=== PATIENT | female | born 1985 | race Caucasian/White ===

== ENCOUNTER 2019-02-22 08:40 | Inpatient (IN) | payer SELFPAY ==
[2019-02-22 09:28] LABS: #Lymphocytes 1.2 thou/uL (1.20-3.40); #Monocytes 0.6 thou/uL (0.11-0.59); #Neutrophils 6.3 thou/uL (1.40-6.50); %Basophils 0.3 % (0.0-1.0); %Eosinophils 0.5 % (0.0-10.0); %Lymphocytes 14.4 % (21.0-51.0); %Monocytes 7.1 % (0.0-10.0); %Neutrophils 77.7 % (42.0-75.0); Hemoglobin 14.4 g/dL (12.0-16.0); Mean Corpuscular HGB CONC 34.4 g/dL (32.0-36.0); Mean Corpuscular Hemoglobin 30.3 pg (27.0-31.0); Mean Corpuscular Volume 88.1 fL (78.0-98.0); Mean Platelet Volume 7.6 fL (7.4-10.4); Platelet Count 375 thou/uL (130-400); RBC Distribution Width 11.9 % (11.5-14.5); Red Blood Cell (RBC) Count 4.75 mill/uL (4.20-5.40); White Blood Cell (WBC) Count 8.1 thou/uL (4.8-10.8)
[2019-02-22 09:45] LABS: ALT (SGPT) 1028 U/L (8-55); AST (SGOT) 1003 U/L (5-34); Acetaminophen Less than 6.0 mcg/mL (10.0-30.0); Albumin 4.6 g/dL (3.5-5.0); Alcohol Less than 10 mg/dL (Less than 10); Alkaline Phosphatase 82 U/L (40-150); Anion Gap 14 mmol/L (10-20); BUN (Urea Nitrogen) 8 mg/dL (7.0-18.7); Bilirubin, Total 1.4 mg/dL (0.2-1.2); Calc. Creatinine Clearance 0 mL/min (70-130); Calcium 9.9 mg/dL (7.8-10.44); Carbon Dioxide 21 mmol/L (22-29); Chloride 103 mmol/L (98-107); Estimated GFR-MDRD 80; Globulin 3.6 g/dL (2.4-3.5); Glucose 110 mg/dL (70-105); Potassium 3.4 mmol/L (3.5-5.1); Protein, Total 8.2 g/dL (6.0-8.3); Salicylate Less than 8.0 mg/dL (15.0-30.0); Sodium 135 mmol/L (136-145)
[2019-02-22 10:22] LABS: Bilirubin Negative (Negative); Blood, Urine Negative (Negative); Clarity Clear (Clear); Glucose, Urine (Dipstick) Normal (Negative); Leukocyte Negative Leu/uL (Negative); Nitrite Negative (Negative); Protein, Urine (Dipstick) Negative (Neg-Trace); Urobilinogen Normal mg/dL (Less than 2)
[2019-02-22 10:25] LABS: Pregnancy Test - Urine (BHCG) Negative (Negative); Pregu Control Background? CLEAR/WHITE (CLR/WHITE); Pregu Control Bar Appear? YES (CONTROL BAR); Specific Gravity 1.007 (1.002-1.036)
[2019-02-22 10:30] LABS: Amphetamine Not Detected (NotDetected); Barbiturates Screen Not Detected (NotDetected); Benzodiazepine Screen Not Detected (NotDetected); Cocaine Metabolite Screen Not Detected (NotDetected); Medtox Control Line Valid? VALID (VALID); Medtox Reader # READER 4; Methadone Not Detected (NotDetected); Methamphetamine Not Detected (NotDetected); Opiate Screen Not Detected (NotDetected); Oxycodone Screen Not Detected (NotDetected); Phencyclidine (PCP) Not Detected (NotDetected); THC/Cannabinoid Screen Not Detected (NotDetected); Tricyclic Screen Not Detected (NotDetected)
[2019-02-22] MEDS ORDERED: Morphine 4 MG/ML VIAL ONE (11:03)
[2019-02-22] MEDS ORDERED: Ondansetron PF 4 MG/2 ML Vial ONE (11:04)
[2019-02-22 11:19] LABS: INR-International Normal Ratio 1.4; Prothrombin Time 16.7 SEC (12.0-14.7)
--- NOTE | 2019-02-22 11:31 | ULT ---
GALLBLADDER ULTRASOUND: Date: 02/22/19 INDICATION: Emergency exam performed for right upper quadrant, abdominal pain. FINDINGS: No focal hepatic lesion or evidence of acute gallbladder pathology. Moderate distention of the gallbl adder is present. The common duct is normal, measuring 3.0 mm, and the gallbladder is within normal l imits. No ascites. IMPRESSION: No acute process of the right upper quadrant is identified, by sonographic evaluation. POS: [facility]
[2019-02-22 12:24] LABS: HBCM Index 0.07 S/CO (0-0.79); Hep A IgM AB Non-Reactive (NonReactive); Hep A IgM S/CO 0.12 S/CO (0-0.79); Hep B Surf Ag Non-Reactive S/CO (NonReactive); Hep C IgG Ab Non-Reactive (NonReactive); Hep C Index 0.14 S/CO (0-0.79); Hepatitis B Core IgM Abs Non-Reactive (NonReactive)
--- NOTE | 2019-02-22 12:41 | PDOC.FM ---
- Subjective Subjective: 33 yo F presents for altered mental status and abdominal pain. Patient reports that she decided to fast for the past 3 days. She started having LLQ abdominal pain that wraps around to her lower back and her lower abdomen, and was concerned that she had a UTI. She also described yellow discharge. Family reports that the patient has been having auditory and visual hallucinations. They say she has slept very little. They report she has had this issue since her early 20s. - Objective Result Diagrams: 02/22/19 09:15 02/22/19 09:15
[2019-02-22] MEDS ORDERED: Ibuprofen 200 MG TAB ONE (13:51)
--- NOTE | 2019-02-22 14:30 | PDOC.FPRHP ---
- History of Present Illness Chief Complaint: abdominal pain History of Present Illness: 33 yo F presents for abdominal pain and "mental help." Patient is a difficult historian. Patient reports that she decided to fast for the past 3 days. She started having LLQ abdominal pain that wraps around to her lower back and her lower abdomen, and was concerned that she had a UTI. She also described yellow discharge. Associated sx include diffuse weakness, substernal chest pain, and "head pressure," vomitingx2 yesterday. Denies hematemesis, hematochezia, hematuria. Does state that she takes tylenol and ibuprofen occasionally. Per report, family states that the patient has been having auditory and visual hallucinations. They say she has slept very little over the past few days. They report she has had this issue since her early 20s., but it has been worsening over the past few years and is now intolerable. They have a difficult time controlling her when she is like this. They brought her today for "Mental help. " Per the patient's brother, her believes that she may have taken her son' s hydrocodone medication. Family feels that she is a threat to her children's wellbeing. ED Course: AST and ALT elevated to 1000 RUQ ultrasound - mod distended gallbladder, no common duct dilation UDS negative Hep panel negative UA and UPT negative - Allergies/Adverse Reactions Allergies Allergy/AdvReac Type Severity Reaction Status Date / Time No Known Allergies Allergy Verified 02/22/19 16:41 - History PMHx: none, no formal psychiatric diagnosis PSHx: tubal ligation FHx: father of heart attack at age 59. No diabetes, no cancer, no HTN. No family history of liver/lung problems. Social: patient denies t/a/d use, family reports remote history of illicit drug use. - Review of Systems General: reports: weight/appetite/sleep changes, fatigue. denies: fever/chills Eyes: denies: eye pain, vision changes ENT: reports: nasal congestion, rhinorrhea Respiratory: reports: cough Cardiovascular: reports: chest pain. denies: palpitation Gastrointestinal: reports: nausea, vomiting, abdominal pain. denies: diarrhea, constipation, GI bleeding Genitourinary: reports: discharge. denies: dysuria Skin: denies: rashes, lesions Musculoskeletal: reports: pain (back pain). denies: tenderness Neurological: reports: weakness. denies: numbness Psychological: reports: depression. denies: anxiety - Vital signs BP: 123/92, Pulse: 91, Resp: 18, Pain: 4, O2 sat: 99 on Room Air, Time: 2018 12:00. - Physical Exam Constitutional: NAD, well developed, other (awake, alert, AO to self and place , not time) HEENT: normocephalic and atraumatic, PERRLA, conjunctiva clear, MMM, oropharynx clear Neck: supple, no LAD Heart: RRR, normal S1/S2 Lungs: CTAB, no wheezing Abdomen: soft, bowel sounds present, no masses/distention, other (TTP LLQ and LUQ, no guarding or rebound) Musculoskeletal: normal structure, normal tone, ROM grossly normal Neurological: no focal deficit Skin: good turgor, capillary refill <2 seconds Heme/Lymphatic: no unusual bruising or bleeding, no petechia Psychiatric: other (Patient acts suspicious of medical team, AO to self and place not time. Repeats questions "What is hepatitis?") FMR H&P: Results - Labs Result Diagrams: 02/22/19 09:15 02/23/19 06:03 Lab results: WBC 8.1 thou/uL (4.8-10.8) 02/22/19 09:15 Hgb 14.4 g/dL (12.0-16.0) 02/22/19 09:15 Hct 41.8 % (36.0-47.0) 02/22/19 09:15 MCV 88.1 fL (78.0-98.0) 02/22/19 09:15 Plt Count 375 thou/uL (130-400) 02/22/19 09:15 Neutrophils % 77.7 % (42.0-75.0) H 02/22/19 09:15 Sodium 135 mmol/L (136-145) L 02/22/19 09:15 Potassium 3.4 mmol/L (3.5-5.1) L 02/22/19 09:15 Chloride 103 mmol/L (98-107) 02/22/19 09:15 Carbon Dioxide 21 mmol/L (22-29) L 02/22/19 09:15 BUN 8 mg/dL (7.0-18.7) 02/22/19 09:15 Creatinine 0.81 mg/dL (0.6-1.1) 02/22/19 09:15 Glucose 110 mg/dL (70-105) H 02/22/19 09:15 Lactic Acid 1.2 mmol/L (0.5-2.2) 02/22/19 12:00 Calcium 9.9 mg/dL (7.8-10.44) 02/22/19 09:15 Total Bilirubin 1.4 mg/dL (0.2-1.2) H 02/22/19 09:15 AST 1003 U/L (5-34) H 02/22/19 09:15 ALT 1028 U/L (8-55) H 02/22/19 09:15 Alkaline Phosphatase 82 U/L (40-150) 02/22/19 09:15 Ammonia 30 umol/L (18-72) 02/22/19 11:25 Serum Total Protein 8.2 g/dL (6.0-8.3) 02/22/19 09:15 Albumin 4.6 g/dL (3.5-5.0) 02/22/19 09:15 Lipase 46 U/L (8-78) 02/22/19 10:59 Urine Ketones Trace mg/dL (Negative) A 02/22/19 09:09 Urine Blood Negative (Negative) 02/22/19 09:09 Urine Nitrite Negative (Negative) 02/22/19 09:09 Ur Leukocyte Esterase Negative Marya/uL (Negative) 02/22/19 09:09 - Radiology Interpretation Other Status: image reviewed by me (RUQ - moderate dilation gallbladder, no CBD distention), report reviewed by ga FMR H&P: A/P - Problem List (1) Acute hepatitis Current Visit: Yes Status: Acute Code(s): B17.9 - ACUTE VIRAL HEPATITIS, UNSPECIFIED (2) Altered mental status Current Visit: Yes Status: Acute Code(s): R41.82 - ALTERED MENTAL STATUS, UNSPECIFIED (3) Hyperbilirubinemia Current Visit: Yes Status: Acute Code(s): E80.6 - OTHER DISORDERS OF BILIRUBIN METABOLISM (4) Atypical chest pain Current Visit: Yes Status: Acute Code(s): R07.89 - OTHER CHEST PAIN - Plan Acute Hepatitis -Unknown cause at this time. AST, ALT elevated to 1000. Bili elevated 2.8. INR within normal limits. UDS negative, RUQ negative, Hepatitis panel negative. Patient denies recent illicit/OTC drug abuse. -Additional labwork to evaluate for possible source of hepatitis including EBV, CMV, AMA, LIAM, serum Fe, Ceruloplasmin, Anti-smooth antibody, RPR, HIV. - Consult GI, Dr. Smyth, appreciate recommendations - Ibuprofen for pain Altered mental status - Pt AOx2. Possibly secondary to underlying psychiatric diagnosis, as family reports she has had this issue since her 20s. - Ammonia normal. - Sitter at bedside, PRN haldol for agitation. Start seroquel. Once medically stable, will consult [facility] ([facility]). Atypical Chest pain -EKG and troponin Hyperbilirubinemia -see Acute Hepatitis GI ppx: protonix DVT ppx: SCDs PCP: CC Dispo: admit to inpatient medical FMR H&P: Upper Level - Plan Date/Time: 02/22/19 [id number] I, [], have evaluated this patient and agree with findings/plan as outlined by epidemiology intern resident. Pertinent changes/additions are listed here. Addendum - Attending - Attending Attestation Date/Time: 02/23/19 [id number] I personally evaluated the patient and discussed the management with Dr. clark on 02/22/19. I agree with the History, Examination, Assessment and Plan documented above with any addition or exceptions noted below. 33 y.o. WF with suspected h/o Mental/Behavioral Health Issues of unclear extent or origin untreated for years of waxing and waning nature, brought in for complaint of abdominal pain and increasingly erratic behavior per family with concerns for manic patterns with A/V hallucinations. Labs show LFT's 5x's normal with normal Coags and Platelets, no stigmata of failure suggesting acute Hepatitis of unknown source. Viral Hepatitis panel is negative. Will widen the search for causative agent. Concern for Acetominophen OD was raised, but no report of ingestion of more than possibly son's Raymond. As pt. is otherwise opiate naive, it is doubtful that she would have consumed enough to reach Acetominophen toxicity and then clear her system to yield a negative UDS without becoming highly sedated, even respiratorily depressed. Will remain vigilant for alternative causes in Ddx. Meanwhile, will manage psychosis with low dose antipsychotics and prn short term meds, attendants at bedside. Will need MHMR evaluation once medically stabilized.
[2019-02-22 16:18] LABS: HIV (1/2) Antibody/Antigen Non-Reactive (NonReactive); HIV 1/2 INDEX 0.09 S/CO (<1.00); Syphilis Antibody Nonreactive (Nonreactive); Syphilis Antibody Index 0.06 S/CO (<1.00 Non-Reactive)
[2019-02-22] MEDS: Ibuprofen 600 MG TAB PO SCH ×3 (16:23→23:10)
[2019-02-22 16:45] VITALS: BMI 25.3
[2019-02-22] MEDS ORDERED: ACETYLCYSTEINE IVPB SCH (19:30)
[2019-02-22] MEDS ORDERED: WATER IVPB SCH (19:30)
[2019-02-22] MEDS ORDERED: DEXTROSE 5% IVPB SCH (19:30)
[2019-02-22] MEDS ORDERED: Acetaminophen 500 MG TAB PO PRN (20:27)
[2019-02-22] MEDS: Haloperidol Lactate 5 MG/ML VIAL SLOW IVP PRN (21:00)
[2019-02-22] MEDS: Melatonin 3 MG TAB PO PRN (21:02)
[2019-02-22] MEDS ORDERED: Haloperidol Lactate 5 MG/ML VIAL SLOW IVP SCH (22:00)
--- NOTE | 2019-02-23 02:29 | CON ---
DATE OF CONSULTATION: 02/22/2019 REASON FOR CONSULTATION: Transaminitis. CONSULTING PROVIDER: Bell Tello MD. HISTORY OF PRESENT ILLNESS: The patient is a 33-year-old female, with no significant past medical history, who presented to the hospital with complaints of left lower quadrant abdominal pain and noted to have significant transaminitis on laboratory evaluation. During the course of the interview with this patient, her thought processes were somewhat slowed with inability to recall events undergone within the last 2 to 3 days. However, she did describe increased suprapubic abdominal pain that appeared approximately 3 days ago that she characterized as a cramping-type sensation, would radiate to the left upper quadrant, was intermittent, and would last for approximately 20 minutes in duration, and reach a severity of 7/10. She could not recall any exacerbating factors for this particular pain, but did note that her pain would be better with walking and taking pain medications. She attributed this to a urinary tract infection in addition to describing a yellowish discharge from her vagina, although she could not further elaborate beyond that. This was associated with increased weakness, substernal chest pain, and vomiting that she exhibited yesterday. She states that her last bowel movement was yesterday and she has had no significant change in her bowel habits over the last 2 to 3 weeks. As an outpatient, she does take Tylenol and ibuprofen occasionally, but she could not recall how much of either these medications she had taken over the last 48 to 72 hours. Near the end of the interview, the patient became agitated with further questioning and refused to answer any additional questions as well as refusing a physical examination, so the remainder of the information was obtained through chart review. Per chart review, the patient has been exhibiting what appears to be manic-type episodes with insomnia, auditory and visual hallucinations that have been present since early 20s, but have been progressively worsening over the last few years. Also, per chart review, the patient's family noted that she had possibly taken her son's hydrocodone to treat her current abdominal pain. REVIEW OF SYSTEMS: 10-category review of systems was attempted, but the patient did not cooperate with any further line of questioning. PAST MEDICAL HISTORY: None. PAST SURGICAL HISTORY: Tubal ligation. FAMILY HISTORY: No mention of any GI malignancies or liver dysfunction. SOCIAL HISTORY: No mention of recent tobacco, alcohol, or illicit drug use, although the family (per chart review) did endorse a history of remote illicit drug use. OUTPATIENT MEDICATIONS: None. ALLERGIES: NO KNOWN DRUG ALLERGIES. PHYSICAL EXAMINATION: VITAL SIGNS: Temperature 97.7, pulse 104, blood pressure 110/77, respiratory rate 20, saturating 99% on room air. Further physical examination could not be performed due to the patient's refusal at this time. LABORATORY DATA: CBC with a white blood cell count of 8.1, hemoglobin 14.4, hematocrit 41.8, platelets 375. Chemistry with a sodium of 135, potassium 3.4, chloride 103, CO2 of 21, BUN 8, creatinine 0.81, glucose 110, AST 1003, ALT 1028, alkaline phosphatase 82, total bilirubin 1.4, albumin 4.6, lipase 46. INR 1.4. Drug of abuse screen was negative for illicit substances. Acute hepatitis panel for hepatitis A, B, or C was negative. HIV was negative, and RPR for syphilis was negative. IMAGING DATA: A right upper quadrant ultrasound was obtained on February 22, 2019, which did not show any focal hepatic lesion or gallbladder pathology. Common bile duct measured approximately 3 mm in diameter and there was no evidence of ascites during this examination. ASSESSMENT AND PLAN: The patient is a 33-year-old female, with no significant past medical history, presenting with complaints of left lower quadrant abdominal pain and significant transaminitis. Suprapubic/left lower quadrant abdominal pain. The patient initially presented with increased suprapubic abdominal pain characterized as a cramping-type sensation that have been occurring for the last 3 days. With the patient's current mental state, it was difficult to ascertain further contributing factors to this particular type of pain nor any significant change in bowel or urinary habits. Given the mention of vaginal discharge, a urinary tract infection sounds more likely, although with the administration of hydrocodone as an outpatient, it could potentially contribute to constipation, which would explain her left lower quadrant abdominal pain and radiation to the left upper quadrant. Differential could include constipation (narcotic induced), diverticular pain/diverticulitis (less likely in a 33-year-old patient), broad ligament strain, radiation of urinary tract infection, endometriosis (less likely), inflammatory bowel disease (less likely), irritable bowel syndrome and/or gastrointestinal neoplasm (much less likely). Recommendations: 1. Pain control per Primary Team. 2. We would place the patient on a bowel regimen while inpatient in light of possible recent hydrocodone abuse with daily MiraLAX as needed for constipation. Transaminitis: The patient is presenting with what appears to be a history of manic-type episodes associated with altered mental status (auditory and visual hallucinations) that may be consistent with bipolar disorder. Given manic-type episodes and inability to recall accurately events over the last 2 to 3 days, ingestion of significant amounts of Tylenol could have occurred. Drug of abuse testing on admission showed negative acetaminophen level; however, given the strong suspicion for acetaminophen ingestion and the presence of any hepatic injury, treatment with N-acetylcysteine is indicated. Further workup for this transaminitis is ongoing with the differential including autoimmune hepatitis, alpha-1 antitrypsin deficiency (although it is usually a more indolent process), Jerad disease, medication/toxin induced, hepatic ischemia (less likely given degree of elevation), or infection (less likely). Recommendations: 1. Agree with obtaining CMV and EBV viral titers for possible transaminitis and a relatively asymptomatic individual. 2. Agree with liver workup to include autoimmune hepatitis with serologies for LIAM, ASMA in addition to possible Jerad disease (all these conditions can flare). 3. We would place the patient on 21-hour protocol for N-acetylcysteine IV given probable recent acetaminophen ingestion and presence of hepatic injury. 4. We would continue to trend LFTs daily in addition to INR for signs of hepatic dysfunction with low threshold to transfer the patient to the ICU if the patient exhibits increased INR or worsening altered mental status during the course of this admission. We will continue to follow. Please call with any questions. Job ID: [id number]
[2019-02-23] MEDS ORDERED: diphenhydrAMINE 50 MG/ML VIAL IVP PRN (03:37)
[2019-02-23] MEDS ORDERED: Ondansetron ODT 4 MG TAB PO PRN (03:37)
[2019-02-23] MEDS ORDERED: Ondansetron PF 4 MG/2 ML Vial IVP PRN (03:37)
[2019-02-23] MEDS ORDERED: diphenhydrAMINE 25 MG CAP PO PRN (03:37)
[2019-02-23] MEDS ORDERED: Acetylcysteine 20% (200mg/mL) 3,500 MG in Dextrose 5% in Water 500 ML IV SCH (03:45)
[2019-02-23] MEDS: Haloperidol Lactate 5 MG/ML VIAL SLOW IVP PRN (03:58)
[2019-02-23] MEDS ORDERED: Ziprasidone 20 MG VIAL IM PRN (06:09)
[2019-02-23] MEDS: Ibuprofen 600 MG TAB PO SCH ×4 (06:16→23:00)
[2019-02-23 06:18] LABS: Prothrombin Time 22.2 SEC (12.0-14.7)
--- NOTE | 2019-02-23 06:27 | PDOC.FM ---
- Subjective Subjective: Patient denies abdominal pain this AM. Overnight, patient was put in restraints because she kept leaving and walking down the hallways. She was given haldol and ativan. - Objective Vital Signs & Weight: Vital Signs (12 hours) Temp Pulse Resp BP Pulse Ox 02/23/19 03:40 98.2 F 81 18 127/86 97 02/23/19 00:00 98.0 F 113 H 22 H 125/80 99 02/22/19 19:46 97.7 F 104 H 20 110/77 99 02/22/19 19:42 99 Weight Weight 69.082 kg I&O: 02/21/19 02/22/19 02/23/19 06:59 06:59 06:59 Intake Total 1490 Balance 1490 Result Diagrams: 02/22/19 09:15 02/23/19 06:03 Phys Exam - Physical Examination Constitutional: NAD HEENT: moist MMs Neck: no nodes, supple Respiratory: no wheezing, clear to auscultation bilateral Cardiovascular: RRR, no significant murmur Gastrointestinal: soft, non-tender, positive bowel sounds Musculoskeletal: no edema, pulses present Neurological: non-focal, moves all 4 limbs Deviation from normal: Patient avoids eye contact, repeats questions. Confused. Poor insight. Skin: normal turgor, cap refill <2 seconds Dx/Plan (1) Acute hepatitis Code(s): B17.9 - ACUTE VIRAL HEPATITIS, UNSPECIFIED Status: Acute (2) Altered mental status Code(s): R41.82 - ALTERED MENTAL STATUS, UNSPECIFIED Status: Acute (3) Hyperbilirubinemia Code(s): E80.6 - OTHER DISORDERS OF BILIRUBIN METABOLISM Status: Acute (4) Atypical chest pain Code(s): R07.89 - OTHER CHEST PAIN Status: Acute (5) Acute liver failure Status: Acute - Plan Plan: Acute Liver Failure -Unknown cause at this time. AST, ALT 1000 -> 3500/6400. Bili elevated 2.8 -> 1.2. INR increased to 2. UDS negative, RUQ negative, Hepatitis panel negative. HIV/RPR neg. Patient denies recent illicit/OTC drug abuse. -Additional labwork to evaluate for possible source of hepatitis pending EBV, CMV, AMA, LIAM, serum Fe, Ceruloplasmin, Anti-smooth antibody. - Consult GI, Dr. Smyth, appreciate recommendations -Added immunology panel, N-Acetylcysteine protocol - Ibuprofen for pain - Recheck INR this afternoon, likely will need to transfer to ICU. Altered mental status - Pt AOx2. Possibly secondary to underlying psychiatric diagnosis, as family reports she has had this issue since her 20s. - Ammonia normal. Recheck this AM - Sitter at bedside, PRN haldol for agitation. Start seroquel. Once medically stable, will consult [facility] ([facility]). Hypokalemia -Replace with oral potassium Atypical Chest pain -EKG - NSR, and troponin neg -Does not complain of pain this AM Hyperbilirubinemia -see Acute Hepatitis GI ppx: protonix DVT ppx: SCDs PCP: CC Dispo: admit to inpatient medical Addendum - Attending - Attending Attestation Date/Time: 02/23/19 2588 I personally evaluated the patient and discussed the management with Dr. Tello. I agree with the History, Examination, Assessment and Plan documented above with any addition or exceptions noted below. Agitated overnight, requriring physical restraint. Antipsychotic initiated at low dose with PRN's, will gradually increase to effective level. Calmer this morning but still poor insight and judgement. Denies SI or OD. Awaiting w/u labs for fulminant hepatitis with failure.
[2019-02-23 06:41] LABS: Albumin 3.9 g/dL (3.5-5.0); Alkaline Phosphatase 70 U/L (40-150); Anion Gap 14 mmol/L (10-20); BUN (Urea Nitrogen) 8 mg/dL (7.0-18.7); Bilirubin, Total 1.2 mg/dL (0.2-1.2); Calc. Creatinine Clearance 116 mL/min (70-130); Carbon Dioxide 20 mmol/L (22-29); Chloride 106 mmol/L (98-107); Estimated GFR-MDRD 89; Glucose 143 mg/dL (70-105); Potassium 3.3 mmol/L (3.5-5.1); Protein, Total 6.9 g/dL (6.0-8.3); Sodium 137 mmol/L (136-145)
[2019-02-23 06:42] LABS: AST (SGOT) Greater than 3500 U/L (5-34)
[2019-02-23 06:53] LABS: ALT (SGPT) 6478 U/L (8-55)
[2019-02-23] MEDS ORDERED: DEXTROSE 5% IV SCH (07:45)
[2019-02-23] MEDS ORDERED: ACETYLCYSTEINE IV SCH (07:45)
[2019-02-23] MEDS ORDERED: WATER IV SCH (07:45)
[2019-02-23] MEDS ORDERED: Potassium Chloride 20 MEQ TAB PO SCH (09:00)
[2019-02-23 13:29] LABS: INR-International Normal Ratio 1.7; Prothrombin Time 20.2 SEC (12.0-14.7)
[2019-02-23 13:46] LABS: Magnesium 2.6 mg/dL (1.6-2.6); Phosphorus 2.2 mg/dL (2.3-4.7)
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
[2019-02-23] MEDS ORDERED: PHOS-NAK 1 PKT PACK PO SCH (16:00)
[2019-02-23 17:04] LABS: ANA Symphony (Qualitative) Negative (Negative); ANA Symphony (Quantitative) 0.2 Ratio (< 0.7 Negative); EliA Vaculitis New Method **** NEW METHOD ****; Mitochondrial Ab Less than 0.5 U/mL (<4 Negative); dsDNA IgG Antibody 1.5 IU/mL (<10 Negative)
[2019-02-23] MEDS ORDERED: Haloperidol Lactate 5 MG/ML VIAL SLOW IVP PRN (17:04)
--- NOTE | 2019-02-23 18:30 | PRG ---
DATE OF SERVICE: 02/23/2019 REASON FOR CONSULTATION: Transaminitis/hepatic dysfunction. SUBJECTIVE: Overnight, the patient continued to display increased agitation with removing of her IV lines, then was subsequently restrained in order to prevent her from doing so. However, per nursing staff, during the course of the day today, she has been much more pleasant and has not attempted to remove any additional IV lines and has been largely cooperative with hospital staff. Currently, she denies any nausea, vomiting, fevers, chills, abdominal pain, hematemesis, melena, hematochezia, diarrhea, or constipation, although she has not had a bowel movement yet during this admission. OBJECTIVE: VITAL SIGNS: Temperature 98, pulse 76, blood pressure 112/76, respiratory rate 20, saturating 99% on room air. GENERAL: The patient is lying in bed, in no acute distress. Alert and oriented x4. CARDIOVASCULAR: Regular rate and rhythm. RESPIRATORY: Clear to auscultation bilaterally. ABDOMEN: Normoactive bowel sounds. Soft, nontender, nondistended. EXTREMITIES: No cyanosis, clubbing, or edema. LABORATORY DATA: INR increased to 2.0. Chemistry with a sodium of 137, potassium 3.3, chloride 106, CO2 of 20, BUN 8, creatinine 0.74. AST greater than 3500, ALT 6478, alkaline phosphatase 70, total bilirubin 1.2. IMAGING DATA: No current GI imaging is available for review. ASSESSMENT AND PLAN: The patient is a 33-year-old female with no significant past medical history, although may have some underlying psychiatric illness, presenting with complaints of left lower quadrant abdominal pain (now resolved) and significant transaminitis. 1. Transaminitis. The patient was initially presenting to the hospital with complaints of suprapubic abdominal pain, that has since resolved during the course of this hospitalization. However, on evaluation of her labs on admission, she was noted to have a significantly elevated AST and ALT concerning for hepatic injury with some mention of increased ingestion of Tylenol in the form of either acetaminophen or coupled with hydrocodone and when coupled with her hepatic injury, she was started on N-acetylcysteine last night, but has not had a chance to really assimilate the medication until starting this morning when she was able to maintain IV lines. Workup for her transaminitis thus far has been negative for acute viral hepatitis, hepatic mass (not seen on ultrasound), autoimmune hepatitis, primary biliary cirrhosis, HIV, and syphilis. Current pending laboratory results for EBV, CMV, anti-smooth muscle, serum plasma, and immunoglobulin profile are pending. RECOMMENDATIONS: 1. Would continue to trend LFTs and INR daily to assess response to treatment and evaluate possible worsening liver function. 2. Would continue to monitor the patient clinically for signs of hepatic encephalopathy, which could be a harbinger of hepatic failure. 3. Would follow up on the drawn labs thus far for acute flares in transaminitis. 4. Would continue the patient on 21-hour protocol with N-acetylcysteine, given possible acetaminophen ingestion and presence of hepatic injury. 5. I would have a low threshold for transferring this patient to the ICU for further management if she begins to exhibit significant elevation in her INR, worsening altered mental status, and significant transaminitis. We will continue to follow. Please call with any questions. Job ID: [id number]
[2019-02-23] MEDS: Melatonin 3 MG TAB PO PRN (22:31)
--- NOTE | 2019-02-23 22:57 | ULT ---
Hepatic ultrasound with duplex evaluation INDICATION: Elevated LFTs with nausea vomiting and diarrhea TECHNIQUE: Grayscale, color Doppler and spectral Doppler images were obtained of the liver, gallbladd er, common bile duct, pancreas, right kidney and spleen. COMPARISON: Right upper quadrant ultrasound dated February 22, 2019 FINDINGS: Liver: No focal hepatic lesion is evident. Hepatic vasculature: Left hepatic vein: Appropriate flow. Middle hepatic vein: Appropriate flow. Right hepatic vein: Appropriate flow. Hepatic artery: Hepatopedal flow. Main portal vein: Hepatopedal flow. Right portal vein: Hepatopedal flow. Left portal vein: Hepatopedal flow. Splenic artery: Appropriate flow. Splenic vein: Hepatopedal flow. Aorta: Appropriate flow. IVC: Appropriate flow. Gallbladder: Normal appearing. Common bile duct: 3 mm. Pancreas: Visualized pancreas appears within normal limits. Right kidney: Visualized right kidney demonstrated no focal renal lesion or hydronephrosis Spleen: The spleen measured 11.4cm in length. IMPRESSION: 1. No focal hepatic lesion. Appropriate hepatopedal flow.
[2019-02-24] MEDS: Ibuprofen 600 MG TAB PO SCH ×2 (06:19→15:28)
[2019-02-24 06:37] LABS: INR-International Normal Ratio 1.5; Prothrombin Time 17.6 SEC (12.0-14.7)
[2019-02-24 06:55] LABS: AST (SGOT) 1563 U/L (5-34); Albumin 3.4 g/dL (3.5-5.0); Alkaline Phosphatase 80 U/L (40-150); Anion Gap 15 mmol/L (10-20); BUN (Urea Nitrogen) 9 mg/dL (7.0-18.7); Bilirubin, Total 0.9 mg/dL (0.2-1.2); Calc. Creatinine Clearance 81 mL/min (70-130); Calcium 9.1 mg/dL (7.8-10.44); Carbon Dioxide 17 mmol/L (22-29); Chloride 109 mmol/L (98-107); Estimated GFR-MDRD 59; Globulin 2.9 g/dL (2.4-3.5); Glucose 90 mg/dL (70-105); Potassium 3.5 mmol/L (3.5-5.1); Protein, Total 6.3 g/dL (6.0-8.3); Sodium 137 mmol/L (136-145)
[2019-02-24 06:56] LABS: Phosphorus 3.7 mg/dL (2.3-4.7)
[2019-02-24 07:08] LABS: ALT (SGPT) 3883 U/L (8-55)
[2019-02-24 07:10] LABS: #Eosinphils 0.3 thou/uL (0.0-0.7); #Lymphocytes 1.5 thou/uL (1.20-3.40); #Monocytes 0.4 thou/uL (0.11-0.59); %Basophils 0.7 % (0.0-1.0); %Monocytes 8.3 % (0.0-10.0); Hemoglobin 12.1 g/dL (12.0-16.0); Mean Corpuscular HGB CONC 32.9 g/dL (32.0-36.0); Mean Corpuscular Volume 88.1 fL (78.0-98.0); Mean Platelet Volume 7.6 fL (7.4-10.4); Platelet Count 270 thou/uL (130-400); RBC Distribution Width 12.1 % (11.5-14.5); Red Blood Cell (RBC) Count 4.18 mill/uL (4.20-5.40); White Blood Cell (WBC) Count 5.3 thou/uL (4.8-10.8)
--- NOTE | 2019-02-24 08:26 | PDOC.FM ---
- Subjective Subjective: No complaints this AM. Pt reports she is eating, drinking, voiding, stooling well. No abdominal pain. - Objective Vital Signs & Weight: Vital Signs (12 hours) Temp Pulse Resp BP Pulse Ox 02/24/19 07:40 97.6 F 63 14 111/75 99 02/23/19 20:40 99 Weight Weight 69.082 kg I&O: 02/23/19 02/24/19 02/25/19 06:59 06:59 06:59 Intake Total 1490 1330 Balance 1490 1330 Result Diagrams: 02/24/19 07:01 02/24/19 06:09 Phys Exam - Physical Examination Constitutional: NAD HEENT: PERRLA, moist MMs Respiratory: no wheezing, clear to auscultation bilateral Cardiovascular: RRR, no significant murmur Gastrointestinal: soft, non-tender, no distention Musculoskeletal: no edema, pulses present Neurological: non-focal, moves all 4 limbs Deviation from normal: affect same as at admission. AOx2 Skin: no rash, normal turgor Dx/Plan (1) Acute hepatitis Code(s): B17.9 - ACUTE VIRAL HEPATITIS, UNSPECIFIED Status: Acute (2) Altered mental status Code(s): R41.82 - ALTERED MENTAL STATUS, UNSPECIFIED Status: Acute (3) Hyperbilirubinemia Code(s): E80.6 - OTHER DISORDERS OF BILIRUBIN METABOLISM Status: Acute (4) Atypical chest pain Code(s): R07.89 - OTHER CHEST PAIN Status: Acute (5) Acute liver failure Status: Acute - Plan Plan: Transaminitis, improving -Unknown cause at this time. AST/ ALT increased to 3500/6400 then decreased to 6478/3883. Bili now normal. INR improved to 1.5. -UDS negative, RUQ negative, Hepatitis panel negative. HIV/RPR neg. Patient denies recent illicit/OTC drug abuse. -Abdominal ultrasound normal liver -Additional labwork pending: EBV, CMV, Ceruloplasmin -Normal AMA, LIAM, serum Fe, Anti-smooth antibody, Immunology panel - Consult GI, Dr. Smyth, appreciate recommendations -N-Acetylcysteine protocol - Ibuprofen for pain - Patient is AO to person and place. Ammonia improved to 70 Hyperammonemia -No sign hepatic encephalopathy this AM -ammonia 30->119-> 70 -lactulose daily Altered mental status -2/2 Pysch vs other. Pt AOx2. Possibly secondary to underlying psychiatric diagnosis, as family reports she has had this issue since her 20s. - Sitter at bedside, PRN haldol for agitation. Start seroquel. Once medically stable, will consult [facility] ([facility] Hypokalemia, resolved -Replace with oral potassium - Atypical Chest pain, resolved -EKG - NSR, and troponin neg -Does not complain of pain this AM Hyperbilirubinemia, resolved GI ppx: protonix DVT ppx: SCDs PCP: CC Dispo: admit to inpatient medical Addendum - Attending - Attending Attestation Date/Time: 02/24/19 1034 I personally evaluated the patient and discussed the management with Dr. Tello. I agree with the History, Examination, Assessment and Plan documented above with any addition or exceptions noted below. No events overnight. Afeb. LFT's dropping by half. Coags stable. Continue current care. Appropriate for inpt. Psych eval and treatment when medically clear.
[2019-02-24] MEDS ORDERED: Lactated Ringer's 1,000 ML IV SCH (08:45)
--- NOTE | 2019-02-24 17:30 | PRG ---
DATE OF SERVICE: 02/24/2019 REASON FOR CONSULTATION: Transaminitis/hepatic dysfunction. SUBJECTIVE: There were no acute events or problems overnight with the patient compliant with current care. Currently, she denies any nausea, vomiting, fevers, chills, abdominal pain, GI bleeding, diarrhea, or constipation, although she has not had a bowel movement yet during this admission. She states that she is also feeling much better this morning, although still remaining somewhat somnolent that she attributes to the medications given during this hospitalization. OBJECTIVE: VITAL SIGNS: Temperature 97.6, pulse 63, blood pressure 111/75, respiratory rate 14, and saturating 99% on room air. GENERAL: The patient is lying in bed, in no acute distress. Alert and oriented x4. CARDIOVASCULAR: Regular rate and rhythm. RESPIRATORY: Clear to auscultation bilaterally. ABDOMEN: Normoactive bowel sounds. Soft, nontender, nondistended. EXTREMITIES: No cyanosis, clubbing, or edema. LABORATORY DATA: CBC with a white blood cell count of 5.3, hemoglobin 12.1, hematocrit 36.8, and platelets 270. INR 1.5. Chemistry with a sodium of 137, potassium 3.5, chloride 109, CO2 of 17, BUN 9, creatinine 1.06, glucose 90, AST 1563, ALT 3883, alkaline phosphatase 80, and total bilirubin 0.9. IMAGING DATA: Right upper quadrant abdominal ultrasound was obtained on February 23, 2019, which showed appropriate or hepatopetal flow throughout the liver with common bile duct measuring approximately 3 mm in diameter. No evidence of Budd-Chiari as per this examination. Also no focal hepatic lesion was noted during this examination either. ASSESSMENT AND PLAN: The patient is a 33-year-old female with no significant past medical history, presenting with significant transaminitis. Transaminitis. The patient initially presented to the hospital with complaints of suprapubic abdominal pain that has since resolved, but during the course of her workup on admission, was noted to have significantly elevated AST and ALT. Per chart review and conversation with the family, there was a strong concern for increased acetaminophen ingestion in the form of hydrocodone, so the patient was started on N-acetylcysteine as soon as possible. Workup for other causes of underlying hepatic injury have been negative thus far for acute viral hepatitis, hepatic mass, autoimmune hepatitis, primary biliary cirrhosis, human immunodeficiency virus, and syphilis. Given the response to treatment thus far and the significant downtrending on her labs today, this seems to be more likely related to medication/toxin related hepatic injury. RECOMMENDATIONS: 1. We would continue to trend LFTs and INR daily to assess response to treatment and evaluate for possible worsening liver dysfunction. 2. We would continue to monitor the patient clinically for signs of hepatic encephalopathy, which could be a harbinger of hepatic failure. 3. Follow up on the liver labs obtained thus far. 4. Lactulose therapy is not indicated at this time given lack of objective evidence for hepatic encephalopathy. We will continue to follow. Please call with any questions. Job ID: [id number]
[2019-02-25] MEDS: Ibuprofen 600 MG TAB PO SCH ×3 (01:39→16:16)
[2019-02-25 03:56] LABS: INR-International Normal Ratio 1.2; Prothrombin Time 14.7 SEC (12.0-14.7)
[2019-02-25 04:06] LABS: ALT (SGPT) 2848 U/L (8-55); AST (SGOT) 569 U/L (5-34); Albumin 3.5 g/dL (3.5-5.0); Alkaline Phosphatase 70 U/L (40-150); Anion Gap 13 mmol/L (10-20); BUN (Urea Nitrogen) 12 mg/dL (7.0-18.7); Calc. Creatinine Clearance 90 mL/min (70-130); Calcium 9.1 mg/dL (7.8-10.44); Carbon Dioxide 20 mmol/L (22-29); Chloride 108 mmol/L (98-107); Estimated GFR-MDRD 67; Globulin 2.9 g/dL (2.4-3.5); Glucose 89 mg/dL (70-105); Potassium 3.5 mmol/L (3.5-5.1); Protein, Total 6.4 g/dL (6.0-8.3); Sodium 137 mmol/L (136-145)
[2019-02-25 06:10] LABS: CMV IgG AB Greater than 10.00 U/mL (0.00-0.59)
--- NOTE | 2019-02-25 08:42 | PDOC.FM ---
- Subjective Subjective: Patient is feeling well this morning, eating, drinking, voiding, and stooling well. No abdominal pain. - Objective Vital Signs & Weight: Vital Signs (12 hours) Temp Pulse Resp BP Pulse Ox 02/25/19 07:56 98.4 F 73 16 107/71 98 Weight Weight 69.082 kg I&O: 02/24/19 02/25/19 02/26/19 06:59 06:59 06:59 Intake Total 1330 1682 Output Total 450 Balance 1330 1232 Result Diagrams: 02/24/19 07:01 02/25/19 03:36 Phys Exam - Physical Examination Constitutional: NAD More interactive and alert today, making more eye contact Respiratory: no wheezing, clear to auscultation bilateral Cardiovascular: RRR, no significant murmur Gastrointestinal: soft, non-tender, no distention, positive bowel sounds Musculoskeletal: no edema, pulses present Neurological: non-focal, moves all 4 limbs Psychiatric: normal affect, A&O x 3 Skin: normal turgor, cap refill <2 seconds Dx/Plan (1) Acute hepatitis Code(s): B17.9 - ACUTE VIRAL HEPATITIS, UNSPECIFIED Status: Acute (2) Altered mental status Code(s): R41.82 - ALTERED MENTAL STATUS, UNSPECIFIED Status: Acute (3) Hyperbilirubinemia Code(s): E80.6 - OTHER DISORDERS OF BILIRUBIN METABOLISM Status: Acute (4) Atypical chest pain Code(s): R07.89 - OTHER CHEST PAIN Status: Acute (5) Acute liver failure Status: Acute - Plan Plan: Transaminitis, improving -Unknown cause at this time, likely 2/2 ingestion of tylenol or other substance. AST/ALT continues to show improvement to 1563/3883. -UDS negative, RUQ negative, Hepatitis panel negative. HIV/RPR neg. Patient denies recent illicit/OTC drug abuse. Abdominal ultrasound normal liver. CMV negative. Normal AMA, LIAM, serum Fe, Anti-smooth antibody, Immunology panel. -EBV and Ceruloplasmin pending. - Consult GI, Dr. Smyth, appreciate recommendations -S/p N-Acetylcysteine protocol - Ibuprofen for pain - Patient is AO to person and place. Ammonia improved to 60 Hyperammonemia -No sign hepatic encephalopathy this AM -ammonia 30->119-> 70 -> 60 -lactulose daily Altered mental status -2/2 Pysch vs other. Pt AOx2. Possibly secondary to underlying psychiatric diagnosis, as family reports she has had this issue since her 20s. - Seroquel 50 mg daily. Haldol PRN for agitation. Once medically stable, will consult [facility] ([facility]). Hypokalemia, resolved Atypical Chest pain, resolved -EKG - NSR, and troponin neg Hyperbilirubinemia, resolved GI ppx: protonix DVT ppx: SCDs PCP: CC Dispo: Likely 1-2 more days inpt, continue to trend CMP Addendum - Attending - Attending Attestation Date/Time: 02/25/19 4825 I personally evaluated the patient and discussed the management with Dr. Tello. I agree with the History, Examination, Assessment and Plan documented above with any addition or exceptions noted below. Pain improved. Vitals stable. LFT's continue to trend down. Stable for transfer to psychiatric facility, for [facility] reeval.
[2019-02-26] MEDS: Ibuprofen 600 MG TAB PO SCH ×3 (00:20→14:25)
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
[2019-02-26 05:09] LABS: INR-International Normal Ratio 1.1; Prothrombin Time 14.2 SEC (12.0-14.7)
--- NOTE | 2019-02-26 06:08 | PDOC.FM ---
- Subjective Subjective: Patient feels well this AM, no belly pain. NAEO. Patient is awaiting transportation to [facility], transport was unable to take them yesterday. - Objective Vital Signs & Weight: Vital Signs (12 hours) Temp Pulse Resp BP Pulse Ox 02/25/19 21:29 99.4 F 106 H 18 118/78 100 02/25/19 20:00 100 Weight Weight 69.082 kg I&O: 02/24/19 02/25/19 02/26/19 06:59 06:59 06:59 Intake Total 1330 1682 Output Total 450 Balance 1330 1232 Result Diagrams: 02/24/19 07:01 02/25/19 03:36 Phys Exam - Physical Examination Constitutional: NAD Respiratory: no wheezing, clear to auscultation bilateral Cardiovascular: no significant murmur regular rhythm, tachycardic Gastrointestinal: soft, positive bowel sounds Musculoskeletal: no edema, pulses present Neurological: non-focal, moves all 4 limbs Psychiatric: normal affect Skin: normal turgor, cap refill <2 seconds Dx/Plan (1) Acute hepatitis Code(s): B17.9 - ACUTE VIRAL HEPATITIS, UNSPECIFIED Status: Acute (2) Altered mental status Code(s): R41.82 - ALTERED MENTAL STATUS, UNSPECIFIED Status: Acute (3) Hyperbilirubinemia Code(s): E80.6 - OTHER DISORDERS OF BILIRUBIN METABOLISM Status: Acute (4) Atypical chest pain Code(s): R07.89 - OTHER CHEST PAIN Status: Acute (5) Acute liver failure Status: Acute - Plan Plan: Transaminitis, improving -Unknown cause at this time, likely 2/2 ingestion of tylenol or other substance. AST/ALT continues to show improvement to 1563/3883. -UDS negative, RUQ negative, Hepatitis panel negative. HIV/RPR neg. Patient denies recent illicit/OTC drug abuse. Abdominal ultrasound normal liver. CMV negative. Normal AMA, LIAM, serum Fe, Anti-smooth antibody, Immunology panel, Ceruloplasmin. -EBV pending. - Consult GI, Dr. Smyth, appreciate recommendations -S/p N-Acetylcysteine protocol - Ibuprofen for pain - Patient is AO to person and place. Ammonia improved to 46 - Medically stable for discharge, awaiting transfer to [facility] Hyperammonemia -No sign hepatic encephalopathy this AM -ammonia 30->119-> 70 -> 60 -> 46 -dc lactulose Altered mental status -2/2 Pysch vs other. Pt AOx2. Possibly secondary to underlying psychiatric diagnosis, as family reports she has had this issue since her 20s. - Seroquel 50 mg BID. Haldol PRN for agitation. - Medically stable for transfer to [facility], awaiting transportation Hypokalemia, resolved Atypical Chest pain, resolved -EKG - NSR, and troponin neg Hyperbilirubinemia, resolved GI ppx: protonix DVT ppx: SCDs PCP: CC Dispo: Discharge to [facility], awaiting transportation
[2019-02-26 17:06] VITALS: BP 118/80; TEMP 98.5
== END 2019-02-26 17:30 | DRG 885 ==
LOC: ERS 08:40 → ERHOLD 12:08 → T4-A 14:44
PROVIDERS: ADMIT Family Medicine; ATTEND Family Medicine
DX: F29 Unspecified psychosis not due to a substance or known physiological condition (principal); E72.20 Disorder of urea cycle metabolism, unspecified; R74.0 Nonspecific elevation of levels of transaminase and lactic acid dehydrogenase [LDH]; R41.82 Altered mental status, unspecified; R07.89 Other chest pain; E80.6 Other disorders of bilirubin metabolism; E83.39 Other disorders of phosphorus metabolism; E87.6 Hypokalemia; Z98.51 Tubal ligation status
CPT/HCPCS: 36415; 76705; 80053; 80074; 80306; 80307; 81003; 81025; 82140; 82390; 82550; 83516; 83540; 83605; 83690; 83735; 84100; 84443; 84484; 85025; 85610; 86038; 86225; 86644; 86645; 86780; 87389; 87798; 93005; 93010; 96361; 96374; 96375; J0132; J1630; J2270; J2405; J7070

== ENCOUNTER 2021-09-04 11:45 | Emergency (ER) | payer OTHER, SELFPAY ==
[2021-09-04 12:36] LABS: #Eosinphils 0.1 thou/uL (0.0-0.7); #Monocytes 0.5 thou/uL (0.11-0.59); #Neutrophils 2.1 thou/uL (1.40-6.50); %Basophils 0.7 % (0.0-1.0); %Eosinophils 2.9 % (0.0-10.0); %Monocytes 10.5 % (0.0-10.0); %Neutrophils 43.9 % (42.0-75.0); Mean Corpuscular HGB CONC 33.2 g/dL (32.0-36.0); Mean Corpuscular Hemoglobin 30.3 pg (27.0-31.0); Mean Corpuscular Volume 91.3 fL (78.0-98.0); Mean Platelet Volume 7.6 fL (7.4-10.4); Platelet Count 335 thou/uL (130-400); RBC Distribution Width 12.2 % (11.5-14.5); Red Blood Cell (RBC) Count 3.97 mill/uL (4.20-5.40); White Blood Cell (WBC) Count 4.7 thou/uL (4.8-10.8)
[2021-09-04 13:03] LABS: ALT (SGPT) 8 U/L (8-55); AST (SGOT) 13 U/L (5-34); Albumin 4.4 g/dL (3.5-5.0); Alkaline Phosphatase 55 U/L (40-110); Anion Gap 12 mmol/L (10-20); BUN (Urea Nitrogen) 13 mg/dL (7.0-18.7); Bilirubin, Total 0.6 mg/dL (0.2-1.2); Calc. Creatinine Clearance 0 mL/min (70-130); Calcium 9.6 mg/dL (7.8-10.44); Carbon Dioxide 24 mmol/L (22-29); Chloride 105 mmol/L (98-107); Globulin 3.2 g/dL (2.4-3.5); Glucose 106 mg/dL (70-105); Potassium 3.8 mmol/L (3.5-5.1); Protein, Total 7.6 g/dL (6.0-8.3); Sodium 137 mmol/L (136-145)
== END 2021-09-04 14:15 ==
LOC: ERS 11:45
DX: E86.0 Dehydration (principal); F20.9 Schizophrenia, unspecified
CPT/HCPCS: 36415; 80053; 85025; 99285